=== PATIENT | male | born 1985 | race Caucasian/White ===

== ENCOUNTER 2019-07-01 02:55 | Observation (INO) | payer OTHER, SELFPAY ==
[2015-04-30 04:34] VITALS: BMI 34.2
[2019-07-01] VITALS (12 sets, daily range): BP systolic 111–154; BP diastolic 69–100; PULSE 79–116; RESP 16–18; TEMP 36.3–37; O2SAT 94–100; BMI 35.9; BMI 36.0; BMI 36.1
--- NOTE | 2019-07-01 03:06 | CT_ITS ---
STUDY: CT ABDOMEN AND PELVIS WITHOUT CONTRAST REASON FOR EXAM: Male, 34 years old. RIGHT SIDED AND PAIN WITH NAUSEA. LAST BM YESTERDAY RADIATION DOSAGE (If Supplied By Facility): CTDIvol = ( 13.78 ) mGy, DLP = ( 788.52 ) mGycm TECHNIQUE: Transaxial images were obtained from the dome of the diaphragm to the symphysis pubis without oral contrast, and without intravenous contrast. Sagittal and coronal images were reconstructed. Individualized dose optimization techniques were used for this CT. COMPARISON: 04/30/2015. FINDINGS: The visualized lung bases are unremarkable. The visualized portions of the heart are within normal limits. Normal liver. Normal gallbladder and extrahepatic biliary system. Normal spleen. Normal pancreas. Normal bilateral adrenal glands. Normal right kidney. Normal left kidney. There is a small hiatal hernia. Normal small intestine. Normal colon. The appendix is visualized on axial images 106-112 and it is enlarged, with diameter 1.5 cm. There are appendicoliths in the appendix and there is periappendiceal fat infiltration. There is no demonstrated periappendiceal fluid collection or free intraperitoneal air to suggest appendiceal rupture. Normal abdominal aorta. Normal inferior vena cava. Normal retroperitoneum. There are a few mildly hyperplastic mesenteric lymph nodes in the right lower quadrant of the abdomen, ranging up to 8 mm in short axis diameter. Normal urinary bladder. Normal abdominal wall. There is multilevel spondylosis in the visualized lower thoracic spine. CT/Abdomen/Pelvis without Cont IMPRESSION: Acute appendicitis. No evidence for appendiceal rupture. Hyperplastic mesenteric lymph nodes in the right lower quadrant of the abdomen, possibly representing reactive changes due to appendiceal inflammation. Small hiatal hernia. N.B. : The above information has been verbally conveyed by Mesfin Granados MD to Morgan Cortez MD, on 07/01/2019 03:54:04 (ET). Electronically Signed: Mesfin Granados MD at 3:56 EST , Service support ,
--- NOTE | 2019-07-01 03:06 | ED.VIS.GEN ---
History of Present Illness Chief Complaint: Abd Pain Informant: Patient Narrative: Patient stated throughout the whole day yesterday he has had right lower abdominal pain. Is gotten worse. Hurts to push on it. He had a few episodes of emesis tonight. No diarrhea. Is never had this before. No home treatment. Current severity is moderate. Worsened by movement. Relieved by laying still. Previous surgeries include tonsils only. No previous abdominal surgeries. Denies any urinary symptoms. Denies any scrotal symptoms. Past Medical History - Allergies and Home Meds Allergies/Adverse Reactions: Allergies Penicillins Allergy (Verified 07/01/19 02:56) Itching latex Adverse Reaction (Verified 07/01/19 02:56) Itching Primary Care Physician: Care Physician,No Primary [Primary Care Provider] - Prior records reviewed: Yes Past Medical History: None Surgical History: tonsillectomy Lives: With Family Smoking Status: Current every day smoker Alcohol: None Drugs: None - Family History Maternal Family History: Reports: No pertinent history Paternal Family History: Reports: No pertinent history Review of Systems General: Denies: Chills, Fever, Sweats Eyes: Denies: Visual changes - bilaterally, Diplopia ENT: Denies: Rhinorrhea, Sore throat Cardiovascular: Denies: Chest pain, Palpitations Respiratory: Denies: Dyspnea, Cough, Dyspnea on exertion Gastrointestinal: Reports: Abdominal pain, Nausea, Vomiting. Denies: Diarrhea, Melena, Hematochezia Genitourinary: Denies: Dysuria, Hematuria, Frequency Musculoskeletal: Denies: Back pain, Extremity Pain Skin: Denies: Rash, Wounds Neurological: Denies: Headache, Weakness, Numbness Physical Exam Vital Signs/Narrative: Vital Signs Temp Pulse Resp BP Pulse Ox 07/01/19 02:57 98.5 F 103 H 16 154/100 H 100 General: Well nourished, Well developed, No Acute Distress Head: Normocephalic, Atraumatic Eyes: Perrl, EOMI ENT: Moist mucous membranes, No rhinorrhea Neck: Supple, Nontender Cardiovascular: Regular rate, Regular rhythm, No murmurs Respiratory: No distress, CTA bilaterally, Chest nontender Abdomen: Soft, Nondistended, Normal bowel sounds, No masses, Tender - Tender in the right lower quadrant over the appendix.. Negative for: Nontender, Guarding, Rebound tenderness, Mass, Pulsatile mass, Hunt's sign Back: Nontender, Normal Inspection Extremities: Nontender, No edema Skin: Normal color, No rash Neurological: Alert, Oriented x3, Cranial nerves II-XII grossly intact, Normal Strength, Normal Sensation Psychological: Normal affect, Normal Mood Diagnostic/Tx/Re-eval - Medical Decision Making Given IV fluids Toradol and Zofran. Lab work and CT abdomen pelvis obtained. Lab work shows a white count greater than 17,000 with left shift. Hemoglobin also 17. Liver function tests lipase and electrolytes show no significant abnormalities.. CT scan shows a nonruptured appendicitis. Will be started on antibiotics clindamycin plus gentamicin due to a penicillin allergy. Given a dose of morphine later in his stay for pain. Discussed with surgery. Patient will be admitted ED Disposition - Plan for ED Patient: Disposition: Acute Care Hospital [facility] Diagnosis: Acute appendicitis Referrals: Care Physician,No Primary [Primary Care Provider] -
[2019-07-01] MEDS: Ketorolac 30 MG/ML Syringe IV ×2 (03:14→14:18)
[2019-07-01 03:15] LABS: Absolute Lymphocyte Count 2.32 X10^3/uL (0.83-4.51); Basophil# 0.07 X10^3/uL; Basophil% 0.4 % (0-1); Eosinophils% 1.2 % (0-5); Hematocrit 50.8 % (40-54); Hemoglobin 17.2 g/dL (13.0-16.5); Lymphocyte # 2.32 X10^3/ul (4.0); Lymphocyte % 13.6 % (19-41); Mean Corp Hgb Conc 33.9 g/dL (32-36); Mean Corpuscular Hgb 30.7 pg (27.0-32.0); Mean Corpuscular Volume 90.7 fL (80-94); Mean Platelet Vol. 10.2 fl (6.2-12.0); Monocyte# 1.41 X10^3/uL; Monocyte% 8.3 % (0-10); NRBC Flagged by Analyzer 0 % (0-5); Neutrophil # 12.99 X10^3/uL (2.7-7.7); Neutrophil % 76.2 % (47-70); Platelet Count 266 K/mm3 (150-450); RBC Distribution Width CV 13.3 % (11.6-14.6); RBC Distribution Width SD 44.7 fl (35.1-43.9)
[2019-07-01] MEDS: Ondansetron 4 MG/2 ML Vial IV (03:15)
[2019-07-01] MEDS: 0.9% Normal Saline 1,000 ML 1000 ML IV (03:15)
[2019-07-01 03:31] LABS: AST(SGOT) 14 U/L (15-37); Alanine Aminotransfer ALT/SGPT 27 U/L (16-61); Albumin, Serum 4.2 g/dL (3.2-5.0); Alkaline Phosphatase 80 U/L (45-117); Anion Gap 5 (5-15); BUN 15 mg/dL (7-18); BUN/Creat Ratio 14.6 RATIO (10-20); Bilirubin, Direct 0.08 mg/dL (0.00-0.30); Calcium,Total 9.1 mg/dL (8.5-10.1); Chloride 105 mmol/L (98-107); Creatinine, Serum 1.03 mg/dL (0.70-1.30); EST Glomerular Filtration Rate 88 mL/min (>60); Est Glom Filt Rate - Afr Amer 107 mL/min (>60); Estimated Creatinine Clearance 111.96 ml/min; Globulin 3.7 g/dL (2.2-4.2); Glucose 123 mg/dL (74-106); Lipase 83 U/L (73-393); Potassium 4.2 mmol/L (3.5-5.1); Protein, Total 7.9 g/dL (6.4-8.2); Sodium Level 138 mmol/L (136-145)
[2019-07-01] MEDS: Morphine 4 MG/ML Syringe IV (04:10)
--- NOTE | 2019-07-01 04:53 | DCINST_ITS ---
Discharge Diet: Light diet - advance as tolerated - if you have questions about your diet instructions, please talk to you doctor. Discharge Activity: May Not Drive - for 3-5 days or while taking narcotic pain medicine. May shower in (days): 1 Lifting Restrictions: 10 pounds Call your doctor if your incision/area has: Continuous Slow Oozing, Sudden Increased Bleeding, Increased Pain/ Swelling, Increased Redness, Foul Smelling Discharge Call your doctor if you observe: Fever of 101 or Higher Suture Line Care: Avoid Pulling/Pushing, Avoid Pinching/Bending Additional Dressing/Incision Instructions:: Change or remove dressing in 4 days. Leave steri-strips in place for 1 week. Allergies/Adverse Reactions: Allergies Penicillins Allergy (Verified 07/01/19 02:56) Itching latex Adverse Reaction (Verified 07/01/19 02:56) Itching Medications to take at Discharge No Known/Unobtainable [No Known Home Medications] 04/30/15 Primary Care Physician: Care Physician,No Primary [Primary Care Provider] - Test Results: Test results from this visit will be discussed in further detail at your follow- up appointment, if applicable. Please Follow Up With: Raul Shaw MD - [phone] When: Call to make an appointment to be seen in about 10 days.
--- NOTE | 2019-07-01 04:54 | PCM.HP.STD ---
Problem List (1) Acute appendicitis Status: Acute Qualifiers: Acute appendicitis type: with localized peritonitis Appendicitis gangrene presence: unspecified whether gangrene present Appendicitis perforation presence: unspecified whether perforation present Appendicitis abscess presence: unspecified whether abscess present Qualified Code(s): K35.30 - Acute appendicitis with localized peritonitis, without perforation or gangrene History of Present Illness Date of Admission: 07/01/19 The patient is a 34 year old M who presents to the emergency room with fever chilling and a 24-hour history of severe abdominal pain.. The patient was evaluated noted had an elevated white count of 17,000. Hemoglobin is elevated to 17.2 with hematocrit of 50.8 and platelet count of 266,000. 76% neutrophils. Is 15 and creatinine 1.03. Liver function tests normal. CT scan was obtained showing acute appendicitis it hyperplastic mesenteric lymph nodes small hiatal hernia. On my review of the images unfortunate as he has a significant amount of paraseptal appendiceal stranding and inflammation appears to abut up against the cecum and involving the cecal wall. Past Medical History Past Medical History (Chronic Problems): Chronic Problems GERD (gastroesophageal reflux disease) (Chronic) Tobacco abuse (Chronic) Obesity (BMI 30.0-34.9) (Chronic) Allergies Penicillins Allergy (Verified 07/01/19 02:56) Itching latex Adverse Reaction (Verified 07/01/19 02:56) Itching Home Medications: Ambulatory Orders Medication Instructions Recorded No Known/Unobtainable [No Known 04/30/15 Home Medications] Surgical History: tonsillectomy Psychiatric History: No pertinent psych hx Lives: With Family Smoking Status: Current every day smoker Tobacco Use: Cigarettes Alcohol: None Drugs: None - *Family History Maternal History Items: No pertinent history Paternal History Items: No pertinent history Review of Systems Constitutional: Reports: Chills, Fever Cardiovascular: Denies: Chest Pain Respiratory: Reports: Cough Gastrointestinal: Reports: Abdominal Pain. Denies: Melena Endocrine: Denies: Change in Body Habitus VTE Information - Inpt Only VTE Present on Admission: No Patient Problems: Active and Suspected Problems Acute appendicitis (Acute) - Physical Exam Vitals/I&O's: Vital Signs Temp Pulse Resp BP Pulse Ox 98.5 F 84 16 136/87 H 98 07/01/19 04:11 07/01/19 04:11 07/01/19 04:11 07/01/19 04:11 07/01/19 04:11 Oxygen Delivery Method Room Air Weight: 265 lb 3.457 oz Body Mass Index (BMI) 35.9 Intake and Output for Last 24 Hours 06/29/19 06/30/19 07/01/19 23:59 23:59 23:59 Intake Total 1000 / 1000 Balance 1000 / 1000 General: Alert, Oriented x3, Cooperative, No apparent distress Lungs: Wheezes - Wheezing bilaterally Cardiovascular: Regular rate, Regular Rhythm Abdomen: Soft, Hypoactive Bowel Sounds, Obese, Tender - Markedly tender to palpation right mid abdomen lower quadrant with rebound and guarding Extremities: No Calf Tenderness Psych/Mental Status: Normal Affect Laboratory Results 07/01/19 03:00: WBC 17.0 H, RBC 5.60, Hgb 17.2 H, Hct 50.8, MCV 90.7, MCH 30.7, MCHC 33.9, RDW Std Deviation 44.7 H, RDW Coeff of Gibran 13.3, Plt Count 266, MPV 10.2, Immature Gran % (Auto) 0.300, Neut % (Auto) 76.2 H, Lymph % (Auto) 13.6 L, [place] % (Auto) 8.3, Eos % (Auto) 1.2, Baso % (Auto) 0.4, Absolute Neuts (auto) 13.0 H, Absolute Lymphs (auto) 2.32, Nucleated RBC % 0 07/01/19 03:00: Sodium 138, Potassium 4.2, Chloride 105, Carbon Dioxide 28.0, Anion Gap 5, BUN 15, Creatinine 1.03, Estim Creat Clear Calc 111.96, Est GFR (MDRD) Af Amer 107, Est GFR (MDRD) Non-Af 88, BUN/Creatinine Ratio 14.6, Glucose 123 H, Calcium 9.1, Total Bilirubin 0.50, Direct Bilirubin 0.08, AST 14 L, ALT 27, Alkaline Phosphatase 80, Total Protein 7.9, Albumin 4.2, Globulin 3.7, Lipase 83 Current Medications Clindamycin Phosphate 900 mg/ (Dextrose) 106 mls @ 75 mls/hr IV X1 ONE Stop: 07/01/19 05:27 Gentamicin Sulfate 400 mg/ (Dextrose) 60 mls @ 100 mls/hr IVPB X1 ONE Stop: 07/01/19 05:00 Last Admin: 07/01/19 04:39 Dose: 100 mls/hr Documented by: Assessment/Plan All Active Problems Acute appendicitis (Acute) 34-year-old gentleman. Findings are consistent with severe acute appendicitis possible perforation possible cecal wall involvement. Additional findings are notable for 2 packs/day of cigarette smoking with active wheezing. As a likely consequence he has significant polycythemia placing him at increased risk for DVT and pulmonary embolus. I recommended the patient a laparoscopic appendectomy with possible conversion to an open approach. He is allergic to penicillin so we will treat with clindamycin and gentamicin. He has had an opportunity to ask and have questions answered. I will anticipate utilizing sequential venous compression devices and initiating postoperative subcutaneous Lovenox as soon as feasible pending the magnitude of the procedure. I have encouraged the patient to cease his tobacco use. Raul Shaw M.D., F.A.C.S.
[2019-07-01] MEDS: Ipratropium/Albuterol Sulfate 3 ML AMPUL.NEB INHALATION (04:57)
--- NOTE | 2019-07-01 05:00 | APP_PTH ---
PATIENT: BEATRIZ LOGAN LOC: MS3 U#:[id number] AGE/SX: 34/M ROOM: MS317 RE07/01/[address]: Dr. Raul Shaw MD : 1985 BED: 1 DIS: 07/02/2019 SPEC #: [id number] RECD: 07/01/19 13:23 STATUS: TWYLA REColby #: [id number] QUITA: 07/01/19 05:[address]: Raul Shaw DEPT: SURGICAL PATHOLOGY RECD BY: Yaniv Rush ENTERED: 07/01/19 13:59 SP TYPE: APPENDIX OTHR DR: No Primary Care Phys Tissues: Appendix, NOS Procedures: Surgery Specimen Level III HEADER OPERATION: Laparoscopic appendectomy PRE-OP DIAGNOSIS: Acute appendicitis TISSUE SUBMITTED: Appendix MICROSCOPIC DIAGNOSIS Appendix, appendectomy: Acute necrotizing appendicitis. Acute serositis. AM:stephane 07/02/19 MICROSCOPIC DESCRIPTION Slides are reviewed. GROSS DESCRIPTION Received is one container labeled with the patient's name and designated appendix. The specimen consists of a vermiform appendix measuring 5 cm in length and 1 cm in diameter. No gross perforations are identified. The attached fibrofatty tissue measures 5 x 5 x 1 cm. Serial sections of the fibrofatty tissue do not reveal mass lesions. Serial sections of the appendix reveal a patent lumen. Operations Chief sections of the appendix are submitted in one cassette. / AM:stephane 07/01/19 TC:2 CPT: 62370
[2019-07-01] MEDS: Bupivacaine Mpf 0.5% 30 ML VIAL (06:36)
--- NOTE | 2019-07-01 06:43 | PCM.OPRPT ---
Problem List (1) Acute appendicitis Status: Acute Qualifiers: Acute appendicitis type: with localized peritonitis Appendicitis gangrene presence: without gangrene Appendicitis perforation presence: without perforation Appendicitis abscess presence: unspecified whether abscess present Qualified Code(s): K35.30 - Acute appendicitis with localized peritonitis, without perforation or gangrene Report of Operation Date of Procedure: 07/01/19 Pre-Operative Diagnosis: Acute appendicitis Post-Operative Diagnosis: Acute appendicitis with localized peritonitis Surgery/Procedure Performed:: Laparoscopic appendectomy Description of Surgical Findings:: Timeout informed consent was obtained. 34-year-old gent was taken the operating placement table underwent general endotracheal intubation esthesia. Clindamycin and gentamicin were given intravenously preoperatively therapeutically. The abdomen sterilely prepped draped. 0.5% Marcaine was used as local anesthetic. Throughout the procedure 30 cc was used. Skin sites were pre-anesthetized. A vertical infraumbilical incision was created. The patient was noted to be obese. Sharp dissection carried down through the subcutaneous tissue holding sutures of 0 Vicryl placed varies needle inserted saline drop test performed the abdomen was insufflated with CO2 to a pressure of 10 mmHg pressure. 10 mm trocar inserted. 10 lap scope inserted. 5 mm trochars are placed suprapubically in the right midabdomen. Inspection revealed acute severe appendicitis with periappendiceal inflammation and stranding and clearance of the appendix to the pericecal area. A window was made in the mesoappendix flush with the cecum. A standard height 45 mm stapler was used to secure that. Further hemostasis obtained with a hemo-lock clip. The mesoappendix was taken with 2 transections of the 45 mm stapler. There was very thickened. The appendiceal mesentery. Hemostasis was intact. The appendix was placed in a retrieval bag. The right pericecal area was irrigated and aspirated free. The appendix was removed at the umbilicus slight fascial enlargement was required. The abdomen was allowed to deflate of the CO2. The fascia at the umbilicus proximal interrupted 0 Vicryl [id number] suture. Skin edges proximal interrupted 4 Monocryl subdermal stitches. Steri-Strips Telfa and OpSite dressings applied. Sponge and instrument and needle counts were reported to the surgeon to be correct. Specimen appendix. Drains none. Blood loss minimal. Raul Shaw M.D., F.A.C.SYoandy Type of Anesthesia:: General Anesthesiologist: Erwin Beasley
[2019-07-01] MEDS: oxyCODONE 5 MG Tablet PO ×2 (12:28→20:01)
--- NOTE | 2019-07-01 13:10 | PN.SURG_ITS ---
Patient Problems: Active and Suspected Problems Acute appendicitis (Acute) Subjective: Very sore now in abdomen, sore shoulders - Physical Exam Vitals/I&O's: Vital Signs Temp Pulse Resp BP Pulse Ox 98.3 F 89 18 112/72 96 07/01/19 11:30 07/01/19 11:30 07/01/19 11:30 07/01/19 11:30 07/01/19 11:30 Oxygen Delivery Method Room Air Weight: 266 lb 5.094 oz Body Mass Index (BMI) 36.1 Intake and Output for Last 24 Hours 06/29/19 06/30/19 07/01/19 23:59 23:59 23:59 Intake Total 1566 / 1566 Balance 1566 / 1566 Abdomen: Soft, Hypoactive Bowel Sounds Laboratory Results 07/01/19 03:00: WBC 17.0 H, RBC 5.60, Hgb 17.2 H, Hct 50.8, MCV 90.7, MCH 30.7, MCHC 33.9, RDW Std Deviation 44.7 H, RDW Coeff of Gibran 13.3, Plt Count 266, MPV 10.2, Immature Gran % (Auto) 0.300, Neut % (Auto) 76.2 H, Lymph % (Auto) 13.6 L, [place] % (Auto) 8.3, Eos % (Auto) 1.2, Baso % (Auto) 0.4, Absolute Neuts (auto) 13.0 H, Absolute Lymphs (auto) 2.32, Nucleated RBC % 0 07/01/19 03:00: Sodium 138, Potassium 4.2, Chloride 105, Carbon Dioxide 28.0, Anion Gap 5, BUN 15, Creatinine 1.03, Estim Creat Clear Calc 111.96, Est GFR (MDRD) Af Amer 107, Est GFR (MDRD) Non-Af 88, BUN/Creatinine Ratio 14.6, Glucose 123 H, Calcium 9.1, Total Bilirubin 0.50, Direct Bilirubin 0.08, AST 14 L, ALT 27, Alkaline Phosphatase 80, Total Protein 7.9, Albumin 4.2, Globulin 3.7, Lipase 83 Current Medications Acetaminophen (Tylenol) 650 mg PO Q6H PRN PRN PRN Reason: Pain Score 1-10/10 Albuterol Sulfate (Ventolin Aerosols) 2.5 mg INHALATION Q4H PRN PRN PRN Reason: wheeeze Enoxaparin Sodium (Lovenox) 40 mg SC DAILY@0600 [facility] Clindamycin Phosphate 900 mg/ (Dextrose) 106 mls @ 150 mls/hr IV Q8 [facility] Stop: 07/01/19 14:43 Lactated Ringer's () 1,000 mls @ 50 mls/hr IV .Q20H [facility] Sodium Chloride () 250 mls @ 15 mls/hr IV .[id number] PRN PRN Reason: Saline Flush Sodium Chloride () 250 mls @ 15 mls/hr IV .[id number] PRN PRN Reason: Additional IVPB Infusion Ketorolac Tromethamine (Toradol (Bkc)) 15 mg IV Q6H PRN PRN PRN Reason: Pain Score 1-10/10 Morphine Sulfate () 2 - 4 mg IV Q1H PRN PRN PRN Reason: Pain Score 1-10/10 Nicotine (Nicoderm Cq (Pbkc)) 21 mg TRANSDERM. DAILY [facility] Last Admin: 07/01/19 09:31 Dose: Not Given Documented by: Ondansetron HCl (Zofran) 4 mg IV Q8H PRN PRN PRN Reason: NAUSEA Oxycodone HCl (Oxyir) 5 - 10 mg PO Q4H PRN PRN PRN Reason: Pain Score 6-10/10 Last Admin: 07/01/19 12:28 Dose: 10 mg Documented by: Pantoprazole Sodium (Protonix) 40 mg PO DAILY [facility] Sodium Chloride () 10 - 40 ml IV UD PRN PRN Reason: SALINE FLUSH Medical Necessity - Tobacco Use Smoking Status: Current every day smoker Tobacco Use: Cigarettes Assessment/Plan All Active Problems Acute appendicitis (Acute) Continue care
[2019-07-01] MEDS: Pantoprazole Sodium 40 MG Tablet PO (14:19)
[2019-07-01] MEDS: Lactated Ringers 1,000 ML 50 ML IV (16:44)
[2019-07-02] MEDS: oxyCODONE 5 MG Tablet PO (00:03)
[2019-07-02 00:04] VITALS: BP 125/76; PULSE 72; RESP 16; TEMP 36.6; O2SAT 98
[2019-07-02] MEDS: Ketorolac 15 MG/ML Vial IV (00:12)
[2019-07-02 04:08] VITALS: BP 120/78; PULSE 80; RESP 16; TEMP 36.8; O2SAT 98
--- NOTE | 2019-07-02 05:49 | PCM.PN.SRG ---
Patient Problems: Active and Suspected Problems Acute appendicitis (Acute) Subjective: Pt c/o soreness RLQ Positive flatus - Physical Exam Vitals/I&O's: Vital Signs Temp Pulse Resp BP Pulse Ox 98.2 F 80 16 120/78 98 07/02/19 04:08 07/02/19 04:08 07/02/19 04:08 07/02/19 04:08 07/02/19 04:08 Oxygen Delivery Method Room Air Weight: 266 lb 5.094 oz Body Mass Index (BMI) 36.1 Intake and Output for Last 24 Hours 06/30/19 07/01/19 07/02/19 23:59 23:59 23:59 Intake Total 1672 / 1672 Balance 1672 / 1672 Abdomen: Soft, Hypoactive Bowel Sounds, Obese, Tender Current Medications Acetaminophen (Tylenol) 650 mg PO Q6H PRN PRN PRN Reason: Pain Score 1-10/10 Albuterol Sulfate (Ventolin Aerosols) 2.5 mg INHALATION Q4H PRN PRN PRN Reason: wheeeze Enoxaparin Sodium (Lovenox) 40 mg SC DAILY@0600 REPLACED BY [facility] Lactated Ringer's () 1,000 mls @ 50 mls/hr IV .Q20H REPLACED BY [facility] Last Admin: 07/01/19 16:44 Dose: 50 mls/hr Documented by: Sodium Chloride () 250 mls @ 15 mls/hr IV .[id number] PRN PRN Reason: Saline Flush Sodium Chloride () 250 mls @ 15 mls/hr IV .[id number] PRN PRN Reason: Additional IVPB Infusion Ibuprofen (Motrin) 600 mg PO Q8H PRN PRN PRN Reason: Pain Score 1-10/10 Ketorolac Tromethamine (Toradol (Bkc)) 15 mg IV Q6H PRN PRN PRN Reason: Pain Score 1-10/10 Last Admin: 07/02/19 00:12 Dose: 15 mg Documented by: Morphine Sulfate () 2 - 4 mg IV Q1H PRN PRN PRN Reason: Pain Score 1-10/10 Nicotine (Nicoderm Cq (Pbkc)) 21 mg TRANSDERM. DAILY REPLACED BY [facility] Last Admin: 07/01/19 09:31 Dose: Not Given Documented by: Ondansetron HCl (Zofran) 4 mg IV Q8H PRN PRN PRN Reason: NAUSEA Oxycodone HCl (Oxyir) 5 - 10 mg PO Q4H PRN PRN PRN Reason: Pain Score 6-10/10 Last Admin: 07/02/19 00:03 Dose: 5 mg Documented by: Pantoprazole Sodium (Protonix) 40 mg PO DAILY [facility] Last Admin: 07/01/19 14:19 Dose: 40 mg Documented by: Sodium Chloride () 10 - 40 ml IV UD PRN PRN Reason: SALINE FLUSH Medical Necessity - Tobacco Use Smoking Status: Current every day smoker Tobacco Use: Cigarettes Assessment/Plan All Active Problems Acute appendicitis (Acute) Plan discharge on OTC pain meds as discussed with pt
[2019-07-02 06:28] LABS: Absolute Lymphocyte Count 2.53 X10^3/uL (0.83-4.51); Absolute Neutrophil Count 5.3 X10^3/uL (2.0-7.7); Basophil# 0.03 X10^3/uL; Basophil% 0.3 % (0-1); Eosinophil# 0.18 X10^3/uL; Hematocrit 41.9 % (40-54); Hemoglobin 13.8 g/dL (13.0-16.5); Lymphocyte # 2.53 X10^3/ul (4.0); Lymphocyte % 27.9 % (19-41); Mean Corp Hgb Conc 32.9 g/dL (32-36); Mean Corpuscular Hgb 30.4 pg (27.0-32.0); Mean Corpuscular Volume 92.3 fL (80-94); Mean Platelet Vol. 10.3 fl (6.2-12.0); Monocyte# 0.99 X10^3/uL; Monocyte% 10.9 % (0-10); NRBC Flagged by Analyzer 0 % (0-5); Neutrophil # 5.33 X10^3/uL (2.7-7.7); Neutrophil % 58.7 % (47-70); Platelet Count 192 K/mm3 (150-450); RBC Distribution Width CV 13.5 % (11.6-14.6); RBC Distribution Width SD 46.1 fl (35.1-43.9); Red Blood Count 4.54 M/mm3 (4.6-6.2); White Blood Count 9.1 K/mm3 (4.4-11.0)
[2019-07-02 08:24] VITALS: BP 127/76; PULSE 91; RESP 18; TEMP 36.9; O2SAT 95
[2019-07-02] MEDS: Pantoprazole Sodium 40 MG Tablet PO (08:28)
[2019-07-02 09:30] VITALS: BP 127/76; PULSE 91; RESP 18; TEMP 36.9; O2SAT 95
== END 2019-07-02 09:30 | disposition home or self-care (01) ==
LOC: ED 03:58 → SDC 04:06 → AC 04:06 → MS3 04:33 → SDC 05:46 → MS3 09:12
PROVIDERS: Admitting Provider Surgery; Emergency Provider Emergency Medicine; Visit Provider Surgery
PROC: 0DTJ4ZZ Resection of Appendix, Percutaneous Endoscopic Approach (ICD-10-PCS; CPT 44970; principal; 2019-07-01 05:00)
DX: K35.33 Acute appendicitis with perforation, localized peritonitis, and gangrene, with abscess (principal); F17.210 Nicotine dependence, cigarettes, uncomplicated; K21.9 Gastro-esophageal reflux disease without esophagitis; E66.9 Obesity, unspecified; Z68.36 Body mass index [BMI] 36.0-36.9, adult; Z71.3 Dietary counseling and surveillance
CPT/HCPCS: 00840; 44970; 36415; 74176; 80048; 80076; 83690; 85025; 88304; 94640; 96365; 96367; 96375; 96376; 99218; 99282; 99406; J7030; J7120; A4216; G0378; J2405

== ENCOUNTER 2021-03-05 20:22 | Emergency (ER) | payer OTHER, SELFPAY ==
[2021-03-05 20:23] VITALS: BP 138/102; PULSE 89; RESP 18; TEMP 36; O2SAT 99; BMI 34.0
--- NOTE | 2021-03-05 22:02 | EKG12_ITS ---
Test Reason : CP Blood Pressure : / mmHG Vent. Rate : 081 BPM Atrial Rate : 081 BPM P-R Int : 132 ms QRS Dur : 082 ms QT Int : 354 ms P-R-T Axes : 018 010 006 degrees QTc Int : 411 ms Normal sinus rhythm Normal ECG Confirmed by ANCELMO MORENO, GIORGIO ([id number]), fashion editor LUCIANA ANTHONY ([id number]) on 03/06/2021 9:25:50 AM Referred By: GAV[place] Confirmed By:GIORGIO AG MD
--- NOTE | 2021-03-05 22:02 | RAD_ITS ---
STUDY: X-RAY CHEST REASON FOR EXAM: Male, 35 years old. Chest pain TECHNIQUE: Portable, upright AP chest radiograph COMPARISON: 03/22/2015 FINDINGS: The lungs are clear and expanded. There is no demonstrated pleural abnormality. Normal size heart. Normal mediastinum and lynne. Normal visualized pulmonary arteries. Normal visualized aortic arch and descending thoracic aorta. Normal visualized thoracic spine. Normal visualized ribs, clavicles, and shoulders. There is no demonstrated abnormality of the visualized soft tissue structures of the upper abdomen. RAD/Chest 1 View (Portable) IMPRESSION: No acute abnormal cardiopulmonary finding. Electronically Signed: Harley Unger MD at 22:34 EDT Tel , Service support ,
[2021-03-05 22:12] VITALS: O2SAT 98
--- NOTE | 2021-03-05 22:15 | ED.VIS.CHEST ---
HPI History of Present Illness Chief Complaint: Chest Pain Narrative Narrative: 35-year-old male with history of asthma and GERD presenting with chest pain which is retrosternal. He states it radiates to the left. He does not have shortness of breath, cough, fever. Patient states that started earlier today. It comes and goes and last for 30 seconds at a time. No diaphoresis, nausea, lightheadedness with this pain. Patient has no cardiac history. He has no DVT risk factors or PE risk factors. Patient states that prior to this he had a rash that broke out on his body. He denies any soaps, dyes, linens, etc. that have changed. He states the rash is basically resolving. He does not know of anything that he would be allergic to. He states that he still is a little bit itchy. [facility] FOR[facility]LY [facility], [facility] Medical History Acute appendicitis GERD (gastroesophageal reflux disease) Obesity (BMI 30.0-34.9) Tobacco abuse Home Medications No Known/Unobtainable [No Known Home Medications] 04/30/15 [History Last Taken Unknown] Allergy/AdvReac Type Severity Reaction Status Date / Time Penicillins Allergy Itching Verified 07/13/19 13:06 latex AdvReac Hives Verified 07/13/19 13:06 Surgical History Hx of appendectomy Social History Smoking Status: Current every day smoker tobacco type: cigarettes ROS ROS ED Constitutional Constitutional ED: Denies chills or fever(s) Eyes Eyes: Reports none; Denies blurry vision or change in vision ENT ENT ED: Denies rhinorrhea or sore throat Cardiovascular Cardiovascular: Reports chest pain; Denies palpitations or racing heartbeat Respiratory/Chest Respiratory/Chest: Denies cough, dyspnea or sputum Gastrointestinal Gastrointestinal: Denies abdominal pain, nausea or vomiting Genitourinary Genitourinary ED: Denies dysuria or hematuria Musculoskeletal Musculoskeletal: Denies arthralgias or myalgias Integumentary Reports rash; Denies Abrasions Neurologic Neurologic: Denies headache(s) or paresthesias EXAM Physical Exam Const Vital Signs: 03/05/21 20:23 03/05/21 21:10 03/05/21 22:12 Temperature 96.8 F L Temperature Source Temporal Pulse Rate 89 Respiratory Rate 18 Respiratory Effort Short of Breath Blood Pressure 138/102 H Blood Pressure Mean 114 Pulse Ox 99 98 Oxygen Delivery Method Room Air Room Air 03/05/21 23:29 Temperature Temperature Source Pulse Rate 79 Respiratory Rate Respiratory Effort Blood Pressure Blood Pressure Mean Pulse Ox 96 Oxygen Delivery Method Room Air Positive obese General Appearance ED: NAD; Negative for pallor Nutritional Appearance: obese HEENT Reports normocephalic, head/scalp atraumatic and moist mucous membranes normocephalic and atraumatic Eyes PERRL and EOMs intact bilaterally Neck no lymphadenopathy and supple Chest Wall inspection of chest normal and palpation of chest normal Resp normal respiratory effort and clear to auscultation bilaterally Auscultation: Negative for rales, rhonchi or wheezes Cardio regular rate and regular rhythm GI Auscultation: normoactive bowel sounds Palpation: soft Narrative: Deferred Extremity normal to inspection General Extremety ED: Negative for edema or tenderness General Extremity: Negative for edema Neuro oriented x3 and CN's II-XII intact bilaterally Sensorium / Orientation: alert Motor Exam: strength 5/5 throughout Psych mental status grossly normal Attitude: No agitated Skin no rashes or lesions noted and no wounds General Skin Exam: Negative for jaundice or pallor Heart Score History: Slightly/Non-Suspicious ECG: Normal Age: </= 45 years Risk Factors: No Risk Factors Troponin: </= Normal Limit Score: 0 MDM MDM MDM Narrative Medical decision making narrative: Patient presenting with chest pain. On my interpretation his EKG is sinus rhythm at 81 bpm without sign of ischemic change. Chest x-ray shows no acute process. Will obtain blood work to rule out ACS. Patient is PERC negative. Patient is complaining of rash which is not visible anymore. He states it is itching him and I will give him some Benadryl. High-sensitivity troponins x2 are both 6. At this point I do not believe that is ACS. Patient's rash is still not present. I feel he is safe to be discharged home at this time. He will use Benadryl at home if he has any itching. He is given follow-up. Impression: 1. Chest pain noncardiac 2. Contact dermatitis resolved Lab Data Labs: Laboratory Results - last 24 hr 03/05/21 03/05/21 03/06/21 21:52 21:52 00:19 WBC 11.3 H RBC 5.57 Hgb 17.4 H Hct 50.9 MCV 91.4 MCH 31.2 MCHC 34.2 RDW Std Deviation 48.4 H RDW Coeff of Gibran 14.4 Plt Count 261 MPV 10.8 Immature Gran % (Auto) 0.300 Neut % (Auto) 64.0 Lymph % (Auto) 25.2 [place] % (Auto) 8.9 Eos % (Auto) 1.3 Baso % (Auto) 0.3 Absolute Neuts (auto) 7.2 Absolute Lymphs (auto) 2.84 Nucleated RBC % 0 Sodium 139 Potassium 4.2 Chloride 106 Carbon Dioxide 28.0 Anion Gap 5 BUN 17 Creatinine 1.05 Estim Creat Clear Calc 108.80 Est GFR (MDRD) Af Amer 104 Est GFR (MDRD) Non-Af 86 BUN/Creatinine Ratio 16.2 Glucose 92 Calcium 8.8 Troponin I High Sens 6 6 Radiography Diagnostic Testing: Clinical Impression(s) from Imaging Studies Chest X-Ray 03/05/21 22:02 IMPRESSION: No acute abnormal cardiopulmonary finding. Electronically Signed: Harley Unger MD at 22:34 EDT Tel , Service support , Discharge Plan Triage Chief Complaint: Chest Pain Other Complaint: Rash ED Provider: Robert Davison Dx/Rx/DC Orders Instructions: ED Chest Pain, Noncardiac, ED Contact Dermatitis Prescriptions: No Action No Known Home Medications RF: 0 Primary Care Provider: Care Physician,No Primary Referrals: Danilo Dowell DO [STAFF PHYSICIAN] - As Needed Care Physician,No Primary [Primary Care Provider] - Disposition Disposition: Home, Self Care
[2021-03-05 22:59] LABS: Absolute Lymphocyte Count 2.84 X10^3/uL (0.83-4.51); Absolute Neutrophil Count 7.2 X10^3/uL (2.0-7.7); Basophil# 0.03 X10^3/uL; Basophil% 0.3 % (0-1); Eosinophil# 0.15 X10^3/uL; Eosinophils% 1.3 % (0-5); Hematocrit 50.9 % (40-54); Hemoglobin 17.4 g/dL (13.0-16.5); Lymphocyte # 2.84 X10^3/ul (0.83-4.51); Lymphocyte % 25.2 % (19-41); Mean Corp Hgb Conc 34.2 g/dL (32-36); Mean Corpuscular Hgb 31.2 pg (27.0-32.0); Mean Corpuscular Volume 91.4 fL (80-94); Mean Platelet Vol. 10.8 fl (6.2-12.0); Monocyte% 8.9 % (0-10); NRBC Flagged by Analyzer 0 % (0-5); Neutrophil # 7.23 X10^3/uL (2.7-7.7); Platelet Count 261 K/mm3 (150-450); RBC Distribution Width CV 14.4 % (11.6-14.6); RBC Distribution Width SD 48.4 fl (35.1-43.9); Red Blood Count 5.57 M/mm3 (4.6-6.2); White Blood Count 11.3 K/mm3 (4.4-11.0)
[2021-03-05 23:14] LABS: Anion Gap 5 (5-15); BUN 17 mg/dL (7-18); BUN/Creat Ratio 16.2 RATIO (10-20); Calcium,Total 8.8 mg/dL (8.5-10.1); Chloride 106 mmol/L (98-107); Creatinine, Serum 1.05 mg/dL (0.70-1.30); EST Glomerular Filtration Rate 86 mL/min (>60); Est Glom Filt Rate - Afr Amer 104 mL/min (>60); Glucose 92 mg/dL (74-106); Potassium 4.2 mmol/L (3.5-5.1); Sodium Level 139 mmol/L (136-145); Troponin-I HS 6 pg/mL (3.0-78.0)
[2021-03-05] MEDS: DiphenhydrAMINE 50 MG/ML Syringe 25 MG IV (23:28)
[2021-03-05 23:29] VITALS: PULSE 79; O2SAT 96
[2021-03-06 00:45] LABS: Troponin-I HS 6 pg/mL (3.0-78.0)
== END 2021-03-06 01:11 | disposition home or self-care (01) ==
PROVIDERS: Emergency Provider Student in an Organized Health Care Education/Training Program
DX: R07.89 Other chest pain (principal); R07.2 Precordial pain; L25.9 Unspecified contact dermatitis, unspecified cause; J45.909 Unspecified asthma, uncomplicated; K21.9 Gastro-esophageal reflux disease without esophagitis; E66.9 Obesity, unspecified; F17.210 Nicotine dependence, cigarettes, uncomplicated
CPT/HCPCS: 71045; 80048; 84484; 85025; 93005; 96374; 99284; A4216

== ENCOUNTER 2021-06-27 14:18 | Emergency (ER) | payer OTHER, SELFPAY ==
[2021-06-27 14:19] VITALS: BP 178/102; PULSE 118; RESP 18; TEMP 36.4; O2SAT 97; BMI 34.5
--- NOTE | 2021-06-27 14:55 | EDS_ITS ---
HPI HPI - URI History of Present Illness Chief Complaint: Wound Check Narrative Narrative: 36-year-old male presenting for evaluation of throat pain. Patient had tonsillectomy and tongue reconstruction yesterday at [facility]. He states he was on a morphine pump and then was given fentanyl patches and was discharged home with pain medication but overnight he notes that his throat is swollen and he is having trouble taking his pain medication. He has not had any bleeding that he knows of. He does not have vomiting. He does report that he has not been able to drink fluids because his throat hurts. ROS ROS ED Constitutional Constitutional ED: Denies chills or fever(s) Eyes Eyes: Denies blurry vision or change in vision ENT ENT ED: Reports sore throat and other Details: Difficulty swallowing Cardiovascular Cardiovascular: Denies chest pain or palpitations Respiratory/Chest Respiratory/Chest: Denies cough or dyspnea Gastrointestinal Gastrointestinal: Denies abdominal pain or nausea Genitourinary Genitourinary ED: Denies dysuria Musculoskeletal Musculoskeletal: Denies arthralgias or myalgias Integumentary Denies abscess or rash Neurologic Neurologic: Denies headache(s) or weakness Psychiatric Psychiatric: Denies anxiety, depression or suicidal thoughts [facility], [facility] Medical History Acute appendicitis GERD (gastroesophageal reflux disease) Obesity (BMI 30.0-34.9) Tobacco abuse Home Medications No Known/Unobtainable [No Known Home Medications] 04/30/15 [History Last Taken Unknown] Allergy/AdvReac Type Severity Reaction Status Date / Time Penicillins Allergy Itching Verified 06/27/21 14:23 latex AdvReac Hives Verified 06/27/21 14:23 Surgical History Hx of appendectomy Social History Smoking Status: Current every day smoker tobacco type: cigarettes EXAM Physical Exam Const Vital Signs: 06/27/21 14:19 Temperature 97.5 F L Temperature Source Temporal Pulse Rate 118 H Respiratory Rate 18 Blood Pressure 178/102 H Blood Pressure Mean 127 Pulse Ox 97 Oxygen Delivery Method Room Air Positive well nourished General Appearance ED: NAD HEENT HEENT Narrative: Trismus. I am unable visualize the posterior oropharynx. Patient's voice is raspy but he is able to speak. Tongue is mildly swollen. There is a MAGALY drain in the left side of the submandibular region. No crepitance is palpated. normocephalic and atraumatic Eyes PERRL and EOMs intact bilaterally Resp normal respiratory effort and clear to auscultation bilaterally Cardio Rate: regular rate Rhythm: regular rhythm Neuro oriented x3, CN's II-XII intact bilaterally and no sensory deficits noted Sensorium / Orientation: alert Motor Exam: strength 5/5 throughout Psych mental status grossly normal Skin Lesions: no lesions Rashes: no rashes MDM MDM MDM Narrative Medical decision making narrative: Patient is medicated with 0.5 of Dilaudid, Zofran 4 mg, 10 mg of dexamethasone and given a liter of IV fluids. On reevaluation the patient is now talking and his pain is improved. His CMP is normal and he is not dehydrated. I discussed the case with Dr. Hamilton his his ENT physician at [facility] and he recommended adding Toradol which was given. Patient reevaluated and still improving. At this point he stated he may want to be transferred to [facility] because of concern that his pain may return. His surgeon did tell me that he had not been taking his pain medication as indicated and this is why he is having so much pain. Is also reported that [facility] is full at this time. I spoke with the surgeon again who did confirm this. He has follow-up with him tomorrow. His surgeon did order him some steroids and more pain medications for home. Patient states that he just wants to sit here for another half an hour and then he will go home and follow-up tomorrow. Impression: 1. Postop wound check?pain Lab Data Attestation: I reviewed the patient's lab results. Labs: Laboratory Results - last 24 hr 06/27/21 15:10 Sodium 141 Potassium 3.8 Chloride 108 H Carbon Dioxide 27.0 Anion Gap 6 BUN 13 Creatinine 1.09 Estim Creat Clear Calc 97.67 Est GFR (MDRD) Af Amer 99 Est GFR (MDRD) Non-Af 82 BUN/Creatinine Ratio 11.9 Glucose 115 H Calcium 8.9 Total Bilirubin 0.90 AST 16 ALT 17 Alkaline Phosphatase 72 Total Protein 7.7 Albumin 4.0 Globulin 3.7 Albumin/Globulin Ratio 1.1 Discharge Plan Triage Chief Complaint: Wound Check Other Complaint: Sore Throat ED Provider: Robert Davison Dx/Rx/DC Orders Instructions: ED Post Op Wound Check, Pain Prescriptions: No Action No Known Home Medications RF: 0 Primary Care Provider: Care Physician,No Primary Referrals: Care Physician,No Primary [Primary Care Provider] - Disposition Disposition: Home, Self Care
[2021-06-27] MEDS: dexAMETHasone 10 MG/ML Vial IV (15:14)
[2021-06-27] MEDS: HYDROmorphone 1 MG/ML Syringe IV (15:14)
[2021-06-27] MEDS: Ondansetron 4 MG/2 ML Vial IV (15:14)
[2021-06-27] MEDS: 0.9% Normal Saline 1,000 ML 1000 ML IV (15:14)
[2021-06-27] MEDS: Ketorolac 15 MG/ML Vial IV (15:22)
[2021-06-27 15:32] LABS: ALB/GLOB Ratio 1.1 RATIO (0.9-2.4); AST(SGOT) 16 U/L (15-37); Alanine Aminotransfer ALT/SGPT 17 U/L (16-61); Alkaline Phosphatase 72 U/L (45-117); Anion Gap 6 (5-15); BUN 13 mg/dL (7-18); BUN/Creat Ratio 11.9 RATIO (10-20); Calcium,Total 8.9 mg/dL (8.5-10.1); Chloride 108 mmol/L (98-107); Creatinine, Serum 1.09 mg/dL (0.70-1.30); EST Glomerular Filtration Rate 82 mL/min (>60); Est Glom Filt Rate - Afr Amer 99 mL/min (>60); Estimated Creatinine Clearance 97.67 ml/min; Globulin 3.7 g/dL (2.2-4.2); Glucose 115 mg/dL (74-106); Potassium 3.8 mmol/L (3.5-5.1); Protein, Total 7.7 g/dL (6.4-8.2); Sodium Level 141 mmol/L (136-145)
[2021-06-27 17:29] VITALS: BP 130/78; PULSE 84; RESP 18; O2SAT 96
== END 2021-06-27 17:30 | disposition home or self-care (01) ==
PROVIDERS: Emergency Provider Student in an Organized Health Care Education/Training Program; Visit Provider Student in an Organized Health Care Education/Training Program
DX: J02.9 Acute pharyngitis, unspecified (principal); R22.1 Localized swelling, mass and lump, neck; Z98.890 Other specified postprocedural states; K21.9 Gastro-esophageal reflux disease without esophagitis; E66.9 Obesity, unspecified; F17.210 Nicotine dependence, cigarettes, uncomplicated
CPT/HCPCS: 80048; 80053; 96361; 96374; 96375; 99283; J7030; A4216; J2405

== ENCOUNTER 2021-07-01 17:51 | Emergency (ER) | payer OTHER, SELFPAY ==
[2021-07-01 17:53] VITALS: BP 192/80; PULSE 111; RESP 18; TEMP 35.4; O2SAT 97; BMI 30.7
--- NOTE | 2021-07-01 18:11 | CT_ITS ---
INDICATION: ODYNOPHAGIA, SWELLING EXAMINATION: CT Soft Tissue Neck W/ Contrast Injection TECHNIQUE: Helically acquired images were obtained of the neck following IV contrast. A radiation dose optimization technique was used for this scan. IV Contrast dosage and agent: 75 cc [id number] COMPARISON: None. FINDINGS: NASOPHARYNX: Unremarkable. SUPRAHYOID NECK: Postsurgical changes in the submental region status post tongue reconstruction. Unremarkable oropharynx, oral cavity, parapharyngeal space, and retropharyngeal space. INFRAHYOID NECK: Unremarkable larynx, hypopharynx, and supraglottis. THYROID: No focal lesions. SALIVARY GLANDS: Unremarkable. LYMPH NODES: No cervical or supraclavicular lymphadenopathy. VASCULAR STRUCTURES: Unremarkable. VISUALIZED PORTIONS OF THE ORBITS, PARANASAL SINUSES, MASTOID AIR CELLS AND SKULL BASE: Unremarkable. BONES: Unremarkable. THORACIC INLET: Clear lung apices. CT/Soft Tissue Neck WITH Contrast IMPRESSION: No acute abnormalities. Postsurgical changes status post tongue reconstruction and tonsillectomy. Electronically Signed: Ned Hagan MD at 19:32 EST ,
--- NOTE | 2021-07-01 18:12 | EX.ED.DYSGE1 ---
HPI History of Present Illness Chief Complaint: Dental Narrative Narrative: Patient presents with his mother because of difficulty swallowing, and pain in his throat with swelling after surgery. He states he had surgery performed on his throat/tonsillectomy/tongue reconstruction at [facility] He was seen in the emergency department a few days ago because of pain and swelling dehydration after he was unable to swallow. He was put on steroids. He states he followed up with his surgeon and was told he had thrush. His pain medication of hydrocodone/acetaminophen liquid was burning his throat so he spits it out. He states he is having pain that feels like sharp razor blades when he swallows, and he is unable to eat or drink anything. He feels dehydrated enough that he thought he should come into the emergency department but did not want to go to the hospital where he had his surgery because of proximity. [facility] Medical History (Updated 07/01/21 @ 19:41 by Miguel Angel Montoya MD) Acute appendicitis GERD (gastroesophageal reflux disease) Obesity (BMI 30.0-34.9) Tobacco abuse Home Medications No Known/Unobtainable [No Known Home Medications] 04/30/15 [History Last Taken Unknown] Allergy/AdvReac Type Severity Reaction Status Date / Time Penicillins Allergy Itching Verified 07/01/21 17:53 latex AdvReac Hives Verified 07/01/21 17:53 Surgical History Hx of appendectomy Social History Smoking Status: Current every day smoker tobacco type: cigarettes ROS ROS ED ROS Narrative Constitutional: No fever, no chills. HEENT: Positive sore throat. Odynophagia. Swelling of chin. Currently being treated for thrush. No neck pain. No loss of vision. No rhinorrhea. Cardiovascular: No chest pain. No palpitations. No pedal edema. Respiratory: No cough, no shortness of breath. Abdominal: No abdominal pain. No nausea. No vomiting. Genitourinary: No dysuria. No hematuria. Musculoskeletal: No myalgias. No arthralgias. Neurologic: No headaches. No dizziness. No lightheadedness. Skin: No rash. No change in color. Psychiatric: No depression. No anxiety. EXAM Physical Exam Narrative Exam Narrative: Afebrile. Vital signs noted. HEENT: Normocephalic. Atraumatic. PERRL, EOMI. Neck soft and supple. No point tenderness or step off. Mild trismus. No drooling. Airway patent. Mild swelling under chin. Cardiovascular: Regular rate and rhythm. No murmurs, rubs, or gallops appreciated. Respiratory: No tachypnea. Lungs clear to auscultation bilaterally. Gastrointestinal: Abdomen soft, nontender, with normoactive bowel sounds. No rebound or guarding. Neurological: Awake. Alert. Nonfocal, nonlateralizing. Skin: No rash. Normal color. No pallor. Musculoskeletal: No pedal edema. Full range of motion extremities. Const Vital Signs: 07/01/21 17:53 Temperature 95.7 F L Temperature Source Temporal Pulse Rate 111 H Respiratory Rate 18 Blood Pressure 192/80 H Blood Pressure Mean 117 Pulse Ox 97 Oxygen Delivery Method Room Air MDM MDM MDM Narrative Medical decision making narrative: I will review his prior records. He is mildly tachycardic. He will be bolused IV fluids. I will obtain CBC and BMP, and obtain imaging of his neck. Patient has slightly elevated white count of 13.5, but I think this is nonspecific and has to do more with his recent surgery. Hemoglobin slightly hemoconcentrated at 17.5. Electrolyte panel shows BUN elevated at 19 with a creatinine of 1.12. He was bolused normal saline 1 L intravenous putting ice chips in his mouth, chewing them up, then spitting it out. However, he has able to handle his own secretions. He is complaining more of a dyne aphasia and pain with swallowing. At this point in time, as his CT shows no acute abnormalities and there are postsurgical changes status post tongue reconstruction and tonsillectomy, I feel he can be discharged safely home. He will follow up with his surgeon tomorrow. He was told to drink plenty of fluids and continue his pain medications and his nystatin for his thrush. Return instructions were reviewed. Disposition is discharged home in stable condition. Lab Data Labs: Laboratory Results - last 24 hr 07/01/21 07/01/21 18:24 18:24 WBC 13.5 H RBC 5.51 Hgb 17.5 H Hct 51.6 MCV 93.6 MCH 31.8 MCHC 33.9 RDW Std Deviation 47.1 H RDW Coeff of Gibran 13.7 Plt Count 343 MPV 10.3 Immature Gran % (Auto) 0.400 Neut % (Auto) 79.4 H Lymph % (Auto) 12.2 L [place] % (Auto) 7.7 Eos % (Auto) 0.1 Baso % (Auto) 0.2 Absolute Neuts (auto) 10.7 H Absolute Lymphs (auto) 1.64 Nucleated RBC % 0 Sodium 140 Potassium 3.9 Chloride 107 Carbon Dioxide 25.0 Anion Gap 8 BUN 19 H Creatinine 1.12 Estim Creat Clear Calc 101.04 Est GFR (MDRD) Af Amer 96 Est GFR (MDRD) Non-Af 79 BUN/Creatinine Ratio 17.0 Glucose 116 H Calcium 9.2 Radiography Diagnostic Testing: Clinical Impression(s) from Imaging Studies Soft Tissue Neck CT 07/01/21 18:11 IMPRESSION: No acute abnormalities. Postsurgical changes status post tongue reconstruction and tonsillectomy. Electronically Signed: Ned Hagan MD at 19:32 EST , Discharge Plan Triage Chief Complaint: Dental ED Provider: Miguel Angel Montoya Dx/Rx/DC Orders Clinical Impression: Odynophagia, Post-operative pain Instructions: ED Post Op Wound Check, Pain Prescriptions: No Action No Known Home Medications RF: 0 Primary Care Provider: Care Physician,No Primary Referrals: Care Physician,No Primary [Primary Care Provider] - Activity Restrictions/Additional Instructions: Call your surgeon tomorrow. Continue to drink plenty of oral fluids. Continue your nystatin swish and swallow versus swish and spit. Disposition Disposition: Home, Self Care
[2021-07-01] MEDS: 0.9% Normal Saline 1,000 ML 1000 ML IV (18:26)
[2021-07-01 18:29] LABS: Absolute Lymphocyte Count 1.64 X10^3/uL (0.83-4.51); Absolute Neutrophil Count 10.7 X10^3/uL (2.0-7.7); Basophil# 0.03 X10^3/uL; Basophil% 0.2 % (0-1); Eosinophil# 0.02 X10^3/uL; Eosinophils% 0.1 % (0-5); Hematocrit 51.6 % (40-54); Hemoglobin 17.5 g/dL (13.0-16.5); Lymphocyte # 1.64 X10^3/ul (0.83-4.51); Lymphocyte % 12.2 % (19-41); Mean Corp Hgb Conc 33.9 g/dL (32-36); Mean Corpuscular Hgb 31.8 pg (27.0-32.0); Mean Corpuscular Volume 93.6 fL (80-94); Mean Platelet Vol. 10.3 fl (6.2-12.0); Monocyte# 1.04 X10^3/uL; Monocyte% 7.7 % (0-10); NRBC Flagged by Analyzer 0 % (0-5); Neutrophil # 10.67 X10^3/uL (2.7-7.7); Neutrophil % 79.4 % (47-70); Platelet Count 343 K/mm3 (150-450); RBC Distribution Width CV 13.7 % (11.6-14.6); RBC Distribution Width SD 47.1 fl (35.1-43.9); Red Blood Count 5.51 M/mm3 (4.6-6.2); White Blood Count 13.5 K/mm3 (4.4-11.0)
[2021-07-01 18:54] LABS: Anion Gap 8 (5-15); BUN 19 mg/dL (7-18); Calcium,Total 9.2 mg/dL (8.5-10.1); Chloride 107 mmol/L (98-107); Creatinine, Serum 1.12 mg/dL (0.70-1.30); EST Glomerular Filtration Rate 79 mL/min (>60); Est Glom Filt Rate - Afr Amer 96 mL/min (>60); Estimated Creatinine Clearance 101.04 ml/min; Glucose 116 mg/dL (74-106); Potassium 3.9 mmol/L (3.5-5.1); Sodium Level 140 mmol/L (136-145)
[2021-07-01 19:50] VITALS: PULSE 92; O2SAT 97
== END 2021-07-01 19:54 | disposition home or self-care (01) ==
PROVIDERS: Emergency Provider Emergency Medicine; Visit Provider Emergency Medicine
DX: R13.10 Dysphagia, unspecified (principal); B37.0 Candidal stomatitis; G89.18 Other acute postprocedural pain; D72.829 Elevated white blood cell count, unspecified; K21.9 Gastro-esophageal reflux disease without esophagitis; E66.9 Obesity, unspecified; F17.210 Nicotine dependence, cigarettes, uncomplicated
CPT/HCPCS: 70491; 80048; 85025; 96360; 99283; J7030; Q9967

== ENCOUNTER 2024-03-03 20:06 | Observation (INO) | payer OTHER, SELFPAY ==
[2024-03-03] VITALS (7 sets, daily range): BP systolic 123–152; BP diastolic 67–83; PULSE 82–122; RESP 16–20; TEMP 36.8–37.4; O2SAT 95–99; BMI 33.4; BMI 33.0
--- NOTE | 2024-03-03 20:33 | CT_ITS ---
STUDY: CT ABDOMEN AND PELVIS WITH CONTRAST REASON FOR EXAM: Male, 38 years old. Lower abdominal pain RADIATION DOSAGE (If Supplied By Facility): CTDIvol = ( 18.41 ) mGy, DLP = ( 1455.81 ) mGycm TECHNIQUE: Transaxial images were obtained from the dome of the diaphragm to the symphysis pubis without oral contrast. IV 100mL Isovue-370 was administered. Sagittal and coronal images were reconstructed. Individualized dose optimization techniques were used for this CT. COMPARISON: None. FINDINGS: The visualized lung bases are unremarkable. The visualized portions of the heart are within normal limits. Normal liver. Normal gallbladder and extrahepatic biliary system. Normal spleen. Normal pancreas. Normal bilateral adrenal glands. Normal right kidney. There is enhancement of the left renal pelvis and ureter. Normal visualized stomach. Normal small intestine. Normal colon. There are surgical clips in the region of the appendix consistent with a prior appendectomy. There is atherosclerotic calcification of the abdominal aorta, without a demonstrated aneurysm. Normal inferior vena cava. Normal retroperitoneum. There is wall thickening of the urinary bladder. There is no free fluid in the abdomen or pelvis. Normal abdominal wall. There is degenerative change of the spine. CT/Abdomen/Pelvis W IV Cont ONLY IMPRESSION: Cystitis with wall thickening of the urinary bladder. Enhancement of the left renal pelvis and ureter. Electronically Signed: Ashish Nesbitt MD at 22:22 EDT ,
--- NOTE | 2024-03-03 20:36 | US_ITS ---
STUDY: SCROTUM ULTRASOUND REASON FOR EXAM: Male, 38 years old. BL scrotal pain TECHNIQUE: Ultrasound evaluation of the scrotum was performed with color Doppler and static cope-scale imaging. COMPARISON: CT. FINDINGS: RIGHT TESTICLE INTRATESTICULAR: There is a normal size of the right testicle. The right testicle measures 5.5 x 3.2 x 2.2 cm. There is a homogenous echotexture. There is normal arterial and normal venous vascularity. There is no demonstrated right testicular mass or cyst. EXTRATESTICULAR: The epididymis is normal in size. The epididymis head measures 1.2 cm. There is normal vascularity of the epididymis. There is no demonstrated epididymal cystic structure. There is a small hydrocele. There is no demonstrated varicocele. There is no demonstrated extratesticular mass or cyst. LEFT TESTICLE INTRATESTICULAR: There is a normal size of the left testicle. The left testicle measures 5.0 x 3.4 x 2.4 cm. There is a homogenous echotexture. There is normal arterial and normal venous vascularity. There is no demonstrated left testicular mass or cyst. EXTRATESTICULAR: The epididymis is normal in size. The epididymis head measures 1.4 cm. There is normal vascularity of the epididymis. There is no demonstrated epididymal cystic structure. There is a small hydrocele. There are prominent extratesticular veins consistent with a varicocele. There is no demonstrated extratesticular mass or cyst. US/Testicular with Arterial Flow IMPRESSION: Normal bilateral testicles. No intratesticular mass. Normal blood flow. Small hydroceles. Electronically Signed: Ashish Nesbitt MD at 22:26 EDT ,
[2024-03-03] MEDS: Acetaminophen 500 MG Tablet 1000 MG PO (20:43)
--- NOTE | 2024-03-03 20:52 | EDS_ITS ---
HPI History of Present Illness Chief Complaint: Complaint Narrative Narrative: Chief complaint and HPI: Abdominal pain and hematuria. 38-year-old male with past medical history of appendectomy presents for evaluation of lower abdominal pain, back pain, hematuria, and testicular pain. Patient states that he has been having lower back pain for the past several weeks. States that it is worse in the last couple days. Endorses pain in his bilateral lower abdomen as well. States 2 days ago he developed hematuria with decreased urination. He endorses bilateral testicular pain. Denies any penile discharge. Denies any concerns for STIs. Denies any fever, chest pain, shortness of breath, nausea, vomiting, diarrhea, bloody bowel movements, rectal pain. Review of systems: See HPI Medications: As listed on the chart Allergies: As listed on the chart PFSH: Per chart Vital signs: As listed on the chart. Reviewed. Physical exam: Gen: A&O x3, NAD Head: Normocephalic, atraumatic Eyes: No sclera icterus, conjunctiva clear ENT: Moist mucous membranes Neck: Trachea midline, No JVD CV: Tachycardic, regular rhythm, no murmurs, no peripheral edema Resp: Lungs CTA BL, no w/r/c GI: Abd soft, non-distended, tender to palpation of the bilateral lower quadrants,, + guarding, no rebound or rigidity : Positive CVA tenderness on the right : Uncircumcised male. No penile tenderness or discharge. No penile or testicular swelling. Testicles are tender to palpation bilaterally-diffusely tender. No testicular masses or skin changes. Cremasteric reflexes intact and equal bilaterally. No rashes. No palpable hernias. Musc: Full ROM, no deformity Skin: Warm, dry Neuro: Alert, oriented, grossly intact, sensation intact Psych: Cooperative, appropriate mood and affect [facility] Medical History (Updated 03/03/24 @ 22:[address] Nishi Salas MD) Acute appendicitis GERD (gastroesophageal reflux disease) Tobacco abuse Obesity (BMI 30.0-34.9) Home Medications ?Medication ?Instructions ?Recorded ?Last Taken ?Type No Known/Unobtainable [No Known 04/30/15 Unknown History Home Medications] Allergy/AdvReac Type Severity Reaction Status Date / Time Penicillins Allergy Itching Verified 03/03/24 20:06 latex AdvReac Hives Verified 03/03/24 20:06 Surgical History Hx of appendectomy Social History Smoking Status: Current every day smoker tobacco type: cigarettes EXAM Physical Exam Const Vital Signs: 03/03/24 20:06 03/03/24 20:09 03/03/24 21:00 Temperature 99.3 F H 99.3 F H 98.2 F Temperature Source Oral Oral Oral Pulse Rate 122 H 122 H 110 H Respiratory Rate 20 H 20 H 18 Blood Pressure 152/79 H 152/79 H 147/71 H Blood Pressure Mean 103 103 96 Pulse Ox 96 96 99 Oxygen Delivery Method Room Air Room Air Room Air 03/03/24 22:00 03/03/24 22:23 03/03/24 22:51 Temperature 98.4 F 98.6 F Temperature Source Oral Pulse Rate 107 H 82 109 H Respiratory Rate 18 16 18 Blood Pressure 131/74 H 134/67 H 135/83 H Blood Pressure Mean 93 89 100 Pulse Ox 99 97 99 Oxygen Delivery Method Room Air Room Air MDM MDM MDM Narrative Medical decision making narrative: 38-year-old male presents for evaluation of back pain, abdominal pain, testicular pain, and hematuria. See physical exam findings. On presentation patient is tachycardic with a temperature of 99.3. Patient requesting non- narcotics for pain control. Tylenol ordered. Differential diagnosis includes but is not limited to UTI, pyelonephritis, urolithiasis, epididymitis, hematuria, urinary retention, electrolyte abnormality. Bladder scan performed at bedside and 52 mL. Patient is not retaining. Abdominal pain workup ordered including CT abdomen pelvis and testicular ultrasound. CBC with a leukocytosis of 19.8. No anemia. CMP without GUS. No transaminitis. Lipase unremarkable. UA is positive for UTI. Urine is turbid, positive for blood and leuk esterase. 2+ bacteria. NS bolus ordered. CT abdomen pelvis shows cystitis with wall thickening of the urinary bladder. Enhancement the left renal pelvis and ureter which can be seen in pyelonephritis. However patient's CVA tenderness was on the right for me. Testicular ultrasound is negative for torsion or epididymitis. Patient does have small hydroceles. On reexamination, patient is still having significant pain. He is in agreement to morphine. Morphine ordered. Given patient's significant pain, leukocytosis, and urine results concern is for pyelonephritis. I do feel that patient warrants admission for his pyelonephritis versus outpatient antibiotics. He is in agreement to this. Patient was discussed with Dr. Salas who agreed to admission. Impression: 1. Pyelonephritis 2. UTI 3. Hematuria Lab Data Labs: Laboratory Results - last 24 hr 03/03/24 03/03/24 20:45 20:55 WBC 19.8 H RBC 5.21 Hgb 16.5 Hct 47.3 MCV 90.8 MCH 31.7 MCHC 34.9 RDW Std Deviation 45.0 H RDW Coeff of Gibran 13.4 Plt Count 232 MPV 10.4 Immature Gran % (Auto) 0.700 Neut % (Auto) 79.5 H Lymph % (Auto) 10.2 L [place] % (Auto) 8.4 Eos % (Auto) 0.8 Baso % (Auto) 0.4 Absolute Neuts (auto) 15.8 H Absolute Lymphs (auto) 2.03 Nucleated RBC % 0 Differential Comment SCANNED Diff Path Review May foll Sodium 136 Potassium 3.7 Chloride 104 Carbon Dioxide 27.0 Anion Gap 5 BUN 12 Creatinine 1.22 Estim Creat Clear Calc 107.03 Est GFR (MDRD) Af Amer 86 Est GFR (MDRD) Non-Af 71 BUN/Creatinine Ratio 9.8 L Glucose 160 H Calcium 8.9 Total Bilirubin 0.50 AST 8 L ALT 12 L Alkaline Phosphatase 84 Total Protein 7.6 Albumin 3.9 Globulin 3.7 Albumin/Globulin Ratio 1.1 Lipase 25 Urine Color Yellow Urine Clarity Turbid Urine pH 5.0 Ur Specific [place] 1.025 Urine Protein 100 H Urine Glucose (UA) Normal Urine Ketones Negative Urine Occult Blood 250 H Urine Nitrite Negative Urine Bilirubin Negative Urine Urobilinogen 1 H Ur Leukocyte Esterase 500 H Urine RBC 50-100 SEEN Urine WBC >100 SEEN Ur Squamous Epith Cells 0-5 SEEN Ur Transition Epith Cell 0-5 SEEN Ur Renal Epithelial Cell 0-5 SEEN Urine Bacteria 2+ Urine Mucus 0 SEEN Radiography Diagnostic Testing: Clinical Impression(s) from Imaging Studies Abdomen/Pelvis CT 03/03/24 20:33 IMPRESSION: Cystitis with wall thickening of the urinary bladder. Enhancement of the left renal pelvis and ureter. Electronically Signed: Ashish Nesbitt MD at 22:22 EDT , Testicular Ultrasound 03/03/24 20:36 IMPRESSION: Normal bilateral testicles. No intratesticular mass. Normal blood flow. Small hydroceles. Electronically Signed: Ashish Nesbitt MD at 22:26 EDT , Discharge Plan Triage Chief Complaint: Complaint ED Provider: Hari Martinez Dx/Rx/DC Orders Prescriptions: No Action No Known Home Medications Primary Care Provider: Care Physician,No Primary Referrals: Care Physician,No Primary [Primary Care Provider] - Print Language: [place]ian
[2024-03-03 21:04] LABS: Absolute Lymphocyte Count 2.03 X10^3/uL (0.83-4.51); Absolute Neutrophil Count 15.8 X10^3/uL (2.0-7.7); Basophil# 0.07 X10^3/uL; Basophil% 0.4 % (0-1); Eosinophil# 0.15 X10^3/uL; Eosinophils% 0.8 % (0-5); Hematocrit 47.3 % (40-54); Hemoglobin 16.5 g/dL (13.0-16.5); Lymphocyte # 2.03 X10^3/ul (0.83-4.51); Lymphocyte % 10.2 % (19-41); Mean Corp Hgb Conc 34.9 g/dL (32-36); Mean Corpuscular Hgb 31.7 pg (27.0-32.0); Mean Corpuscular Volume 90.8 fL (80-94); Mean Platelet Vol. 10.4 fl (6.2-12.0); Monocyte# 1.66 X10^3/uL; Monocyte% 8.4 % (0-10); NRBC Flagged by Analyzer 0 % (0-5); Neutrophil # 15.78 X10^3/uL (2.7-7.7); Neutrophil % 79.5 % (47-70); POSITIVE DIFFERENTIAL YES; Platelet Count 232 K/mm3 (150-450); RBC Distribution Width CV 13.4 % (11.6-14.6); Red Blood Count 5.21 M/mm3 (4.6-6.2); White Blood Count 19.8 K/mm3 (4.4-11.0)
[2024-03-03 21:06] LABS: Differential Indicated SCAN CRITERIA MET
[2024-03-03 21:23] LABS: ALB/GLOB Ratio 1.1 RATIO (0.9-2.4); AST(SGOT) 8 U/L (15-37); Alanine Aminotransfer ALT/SGPT 12 U/L (16-61); Albumin, Serum 3.9 g/dL (3.2-5.0); Alkaline Phosphatase 84 U/L (45-117); Anion Gap 5 (5-15); BUN 12 mg/dL (7-18); BUN/Creat Ratio 9.8 RATIO (10-20); Calcium,Total 8.9 mg/dL (8.5-10.1); Chloride 104 mmol/L (98-107); Creatinine, Serum 1.22 mg/dL (0.70-1.30); EST Glomerular Filtration Rate 71 mL/min (>60); Est Glom Filt Rate - Afr Amer 86 mL/min (>60); Estimated Creatinine Clearance 107.03 ml/min; Globulin 3.7 g/dL (2.2-4.2); Glucose 160 mg/dL (74-106); Lipase 25 U/L (13-75); Potassium 3.7 mmol/L (3.5-5.1); Protein, Total 7.6 g/dL (6.4-8.2); Sodium Level 136 mmol/L (136-145)
[2024-03-03 21:24] LABS: Mucous, Urine 0 SEEN /hpf (<or=2+)
[2024-03-03 21:27] LABS: Color, Urine Yellow (Yellow); Glucose, Dipstick Normal (Normal); Ketone-Dipstick Negative (Negative); Leukocyte Esterase-Dipstick 500 /ul (Negative); Nitrite-Dipstick Negative (Negative); Occult Blood-Urine 250 /ul (Negative); Protein-Dipstick 100 mg/dl (Negative); Specific Gravity, Urine 1.025 (1.002-1.030); Urine Bilirubin Dipstick Negative (Negative); Urine Clarity Turbid (Clear); Urine Urobilinogen 1 mg/dl (Normal)
[2024-03-03 21:29] LABS: Differential Comment SCANNED
[2024-03-03 21:42] LABS: White Blood Cells >100 SEEN /hpf (0-5)
[2024-03-03 21:43] LABS: Red Blood Cells-Urine 50-100 SEEN /hpf (0-5); Squamous Epithelial Cells - UA 0-5 SEEN /hpf (0-5)
[2024-03-03 21:44] LABS: Bacteria 2+ /hpf (None Seen); Renal Epithelial Cells 0-5 SEEN /hpf (0-5); Transitional Epithelial - Ur 0-5 SEEN /hpf (0-5)
[2024-03-03] MEDS: Ceftriaxone 2 GM in 0.9% Normal Saline (50mL MB+) 50 ML IV (22:42)
[2024-03-03] MEDS: 0.9% Normal Saline (1000mL) 1,000 ML 999 ML IV (22:45)
[2024-03-03] MEDS: Morphine 4 MG/ML Syringe IV (22:46)
--- NOTE | 2024-03-03 22:55 | HP.PCM.HOS_ITS ---
HPI - General General Date of Admission: 03/03/24 Date of Service: 03/03/24 Chief Complaint: Flank pain, hematuria, lower abdominal pain. 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 on intermittent antibiotic therapy with planned removal, Obesity, GERD, Tobacco use who presents to the [facility] ED on 03/03/24 with history of lower abdominal discomfort and onset of hematuria as well as lower back discomfort in addition to testicular pain reportedly having lower back discomfort for several weeks but has been worse over the last 2 to 3 days with onset of hematuria over the last 48 hours and decreased urination with pain radiating to both testicles with no recent penile discharge and denies any concerns or reasons that he could have STI with no fevers but has had chills and given ongoing prompted ED evaluation to be cautious. Patient is a otr owner operator truck driver and frequently will hold his urine and sometimes reports frequently pee into a cup/water bottle and using the same 1 several times over. He has never had any urinary tract infections previously. Workup in the ED included T99.3, heart rate 122, BP 152/79, respiratory rate 20, 96% room air with most recent repeat vitals heart rate 82, BP 134/67, respiratory rate 16, 97% on room air, CBC with WBC 19.8, human 16.5, platelet 232 with left shift, CMP with glucose 160 otherwise not marked appearing, lipase 25, urinalysis noted to be turbid, specific remedy elevated 1.025, protein 100, occult blood 250, urine nitrite negative, leukocyte esterase 500 with urine RBCs 50-100 with greater than 100 urine WBCs with 2+ urine bacteria, urine culture pending per ED, testicular ultrasound unremarkable with normal bilateral testicles with no intratesticular mass and normal blood flow as well as small hydroceles noted incidentally, CT abdomen and pelvis with contrast with cystitis with wall thickening of the urinary bladder with enhancement of the left renal pelvis and ureter. In the ED patient ministered 1 L normal saline, Tylenol 1000 mg p.o. x 1, Rocephin 2 g IV x 1 as well as morphine 4 mg IV x 1. [facility], [facility] Medical History JEAN MARIE (obstructive sleep apnea) GERD (gastroesophageal reflux disease) Tobacco abuse Obesity (BMI 30.0-34.9) Home Medications ?Medication ?Instructions ?Recorded ?Last Taken ?Type No Known/Unobtainable [No Known 04/30/15 Unknown History Home Medications] Allergy/AdvReac Type Severity Reaction Status Date / Time Penicillins Allergy Itching Verified 03/03/24 20:06 latex AdvReac Hives Verified 03/03/24 20:06 Family History (Updated 03/03/24 @ 23:[address] Nishi Salas MD) Mother COPD (chronic obstructive pulmonary disease) Lung cancer Father Thyroid disorder Surgical History History of tonsillectomy and adenoidectomy S/P insertion of hypoglossal nerve stimulator History of dental surgery Hx of appendectomy Social History (Updated 03/03/24 @ 23:[address] Nishi Salas MD) household members: spouse Smoking Status: Current every day smoker tobacco type: cigarettes Smoking packs per day: 2 Smoking cigarettes per day: 40.0 alcohol intake: never substance use type: does not use ROS ROS Narrative Admission Review of Systems: CONSTITUTIONAL: No weight loss, fever, + chills, weakness or fatigue. HEENT: Eyes: No visual loss, blurred vision, double vision or yellow sclerae. Ears, Nose, Throat: No hearing loss, sneezing, congestion, runny nose or sore throat. SKIN: No rash or itching, lesions, wounds. CARDIOVASCULAR: No chest pain, chest pressure or chest discomfort, palpitations, edema, orthopnea, syncopal events. RESPIRATORY: No shortness of breath, cough or sputum, wheezing, hemoptysis. GASTROINTESTINAL: + anorexia, lower abdominal/suprapubic pain. No nausea, vomiting, diarrhea, melena, BRBPR. GENITOURINARY: + Foul appearing/smelling urine, testicular BL pain, flank pain, frequency, suprapubic pain. NEUROLOGICAL: No headache, dizziness, syncope, paralysis, ataxia, numbness or tingling in the extremities, focal weakness, change in bowel or bladder control, seizure. MUSCULOSKELETAL: + muscle, back pain, joint pain or stiffness. HEMATOLOGIC: No anemia, bleeding or bruising. LYMPHATICS: No enlarged nodes. No history of splenectomy. PSYCHIATRIC: No history of depression or anxiety. ENDOCRINOLOGIC: + reports of sweating, cold or heat intolerance. No polyuria or polydipsia. ALLERGIES: + Hx Hives. Vital Signs Vital Signs Vital Signs: 03/03/24 20:06 03/03/24 20:09 03/03/24 21:00 Temperature 99.3 F H 99.3 F H 98.2 F Temperature Source Oral Oral Oral Pulse Rate 122 H 122 H 110 H Respiratory Rate 20 H 20 H 18 Blood Pressure 152/79 H 152/79 H 147/71 H Blood Pressure Mean 103 103 96 Pulse Ox 96 96 99 Oxygen Delivery Method Room Air Room Air Room Air 03/03/24 22:00 03/03/24 22:23 03/03/24 22:51 Temperature 98.4 F 98.6 F Temperature Source Oral Pulse Rate 107 H 82 109 H Respiratory Rate 18 16 18 Blood Pressure 131/74 H 134/67 H 135/83 H Blood Pressure Mean 93 89 100 Pulse Ox 99 97 99 Oxygen Delivery Method Room Air Room Air Weight Weight: 246 lb 7.629 oz Body Mass Index (BMI) 33.4 Physical Exam Narrative Physical Examination: General: Awake, alert, oriented x 3 and cooperative, seated upright in the ED bed, fatigued, ill-appearing, wearing a hat secondary to chills Skin: Normal color, normal turgor, no icterus, no cyanosis. HEENT: AT/NC, EOMI, PERRLA, mildly dry MM, no carotid bruits or JVD noted. Lungs: CTA bilaterally, moderate effort, mild decrease BL bases, no rales, ronchi or wheezing. Heart: Tachycardic with regular rhythm; no gallop, rub audible. Abdomen: Soft, obese, discomfort to primarily suprapubic region/bilateral lower quadrant, nondistended, mildly hyperactive BS, no appreciated HSM. Extremities: No cyanosis, no clubbing, mild ankle not markedly pitting edema bilaterally. Neurological: Patient awake, alert, oriented as noted, cognitive function intact; pupils equally reactive to light and accommodation, cranial nerves grossly normal, moving all 4 extremities, no focal deficits, strength moderately globally decreased secondary to acute presentation complaints. Psychiatric: Affect appears flat, fatigued, ill-appearing, no acute evidence of depressive or anxiety feelings. Results Lab / Micro Data 03/03/24 20:55 03/03/24 20:55 Labs: Laboratory Results - last 24 hr 03/03/24 20:45: Urine Color Yellow, Urine Clarity Turbid, Urine pH 5.0, Ur Specific [place] 1.025, Urine Protein 100 H, Urine Glucose (UA) Normal, Urine Ketones Negative, Urine Occult Blood 250 H, Urine Nitrite Negative, Urine Bilirubin Negative, Urine Urobilinogen 1 H, Ur Leukocyte Esterase 500 H, Urine RBC 50-100 SEEN, Urine WBC >100 SEEN, Ur Squamous Epith Cells 0-5 SEEN, Ur Transition Epith Cell 0-5 SEEN, Ur Renal Epithelial Cell 0-5 SEEN, Urine Bacteria 2+, Urine Mucus 0 SEEN 03/03/24 20:55: WBC 19.8 H, RBC 5.21, Hgb 16.5, Hct 47.3, MCV 90.8, MCH 31.7, MCHC 34.9, RDW Std Deviation 45.0 H, RDW Coeff of Gibran 13.4, Plt Count 232, MPV 10.4, Immature Gran % (Auto) 0.700, Neut % (Auto) 79.5 H, Lymph % (Auto) 10.2 L, [place] % (Auto) 8.4, Eos % (Auto) 0.8, Baso % (Auto) 0.4, Absolute Neuts (auto) 15.8 H, Absolute Lymphs (auto) 2.03, Nucleated RBC % 0, Differential Comment SCANNED, Diff Path Review September, Sodium 136, Potassium 3.7, Chloride 104, Carbon Dioxide 27.0, Anion Gap 5, BUN 12, Creatinine 1.22, Estim Creat Clear Calc 107.03, Est GFR (MDRD) Af Amer 86, Est GFR (MDRD) Non-Af 71, BUN/Creatinine Ratio 9.8 L, Glucose 160 H, Calcium 8.9, Total Bilirubin 0.50, AST 8 L, ALT 12 L , Alkaline Phosphatase 84, Total Protein 7.6, Albumin 3.9, Globulin 3.7, Albumin/Globulin Ratio 1.1, Lipase 25 Imaging Radiology Impression Abdomen/Pelvis CT 03/03/24 20:33 IMPRESSION: Cystitis with wall thickening of the urinary bladder. Enhancement of the left renal pelvis and ureter. Electronically Signed: Ashish Nesbitt MD at 22:22 EDT , Testicular Ultrasound 03/03/24 20:36 IMPRESSION: Normal bilateral testicles. No intratesticular mass. Normal blood flow. Small hydroceles. Electronically Signed: Ashish Nesbitt MD at 22:26 EDT Reading Location ID and State: [address] [place] [address] , Service support , Assessment & Plan Assessment/Plan (1) UTI (urinary tract infection): PLAN: Plan The patient is a 38 y/o M w/ PMHx: Obesity, GERD, Tobacco use who presents to the [facility] ED on 03/03/24 with history of lower abdominal discomfort and onset of hematuria as well as lower back discomfort in addition to testicular pain reportedly having lower back discomfort for several weeks but has been worse over the last 2 to 3 days with onset of hematuria over the last 48 hours and decreased urination with pain radiating to both testicles with no recent penile discharge and denies any concerns or reasons that he could have STI with no fevers or chills but given ongoing prompted ED evaluation to be cautious. #1. Acute Complicated Urinary Tract Infection with intractable flank, lower abdominal and testicular associated pain, Questionable early Acute Pyelonephritis: Will admit to [facility] upon ED evaluation remarkable, pending UCx, will continue IVFs, monitor I/Os, continue IV Rocephin w/ transition as able pending sensitivities and speciation. Will additionally to be cautious obtain urine gonorrhea/chlamydia PCR. Will place on scheduled low dose toradol, as needed further pain regimen oral/IV for breakthrough. #2. Elevated BP without hypertensive history: BP in the ED elevated above goal, potentially pain related with acute presentation number 1, will continue to monitor and add regimen if appropriate, as needed hydralazine in interim. #3. Hyperglycemia: Possibly stress response, admission glucose 160, hemoglobin A1c requested to be cautious. #4. GERD: Not on the regimen, will have as needed Mylanta and place on famotidine. #5. Obesity: Weight loss and lifestyle changes encouraged. #6. Tobacco Abuse: Encouraged cessation, inpatient consultation per RT, NR if desired. #7. JEAN MARIE: Status post hypoglossal nerve stimulation implant with unfortunately continuous issues with postop infection on intermittent antibiotic with planned upcoming removal. #8. DVT prophylaxis: Low risk for age, encourage ambulation Charges/Coding Visit Charges Inpatient E&M: 31478 Init Hosp L3
[2024-03-04] MEDS: Ketorolac 15 MG/ML Vial IV ×2 (00:29→10:20)
[2024-03-04] MEDS: Famotidine 20 MG Tablet PO ×2 (00:29→10:22)
[2024-03-04 05:51] VITALS: BP 125/75; PULSE 95; RESP 16; TEMP 36.6; O2SAT 98
[2024-03-04 06:37] LABS: Absolute Neutrophil Count 7.6 X10^3/uL (2.0-7.7); Basophil# 0.07 X10^3/uL; Basophil% 0.6 % (0-1); Eosinophil# 0.32 X10^3/uL; Eosinophils% 2.6 % (0-5); Hematocrit 44.6 % (40-54); Hemoglobin 15.1 g/dL (13.0-16.5); Lymphocyte % 26.3 % (19-41); Mean Corp Hgb Conc 33.9 g/dL (32-36); Mean Corpuscular Hgb 31.3 pg (27.0-32.0); Mean Corpuscular Volume 92.5 fL (80-94); Mean Platelet Vol. 10.4 fl (6.2-12.0); Monocyte# 0.91 X10^3/uL; Monocyte% 7.5 % (0-10); NRBC Flagged by Analyzer 0 % (0-5); Neutrophil # 7.64 X10^3/uL (2.7-7.7); Neutrophil % 62.7 % (47-70); Platelet Count 203 K/mm3 (150-450); RBC Distribution Width CV 13.4 % (11.6-14.6); RBC Distribution Width SD 45.8 fl (35.1-43.9); Red Blood Count 4.82 M/mm3 (4.6-6.2); White Blood Count 12.2 K/mm3 (4.4-11.0)
[2024-03-04 07:25] LABS: AST(SGOT) 8 U/L (15-37); Alanine Aminotransfer ALT/SGPT 11 U/L (16-61); Albumin, Serum 3.1 g/dL (3.2-5.0); Alkaline Phosphatase 68 U/L (45-117); Anion Gap 4 (5-15); BUN 13 mg/dL (7-18); Calcium,Total 8.3 mg/dL (8.5-10.1); Chloride 110 mmol/L (98-107); Creatinine, Serum 0.86 mg/dL (0.70-1.30); EST Glomerular Filtration Rate 105 mL/min (>60); Est Glom Filt Rate - Afr Amer 128 mL/min (>60); Estimated Creatinine Clearance 150.91 ml/min; Globulin 3.2 g/dL (2.2-4.2); Glucose 108 mg/dL (74-106); Potassium 3.6 mmol/L (3.5-5.1); Protein, Total 6.3 g/dL (6.4-8.2); Sodium Level 139 mmol/L (136-145)
[2024-03-04 07:58] LABS: Hemoglobin A1c 5.6 % (3.8-5.6)
[2024-03-04 08:05] VITALS: O2SAT 96
[2024-03-04 09:50] LABS: Pathologist Review Reviewed
[2024-03-04] MEDS: oxyCODONE 5 MG Tablet PO (10:17)
[2024-03-04] MEDS: 0.9% Saline Lock 10 ML Syringe IV (10:21)
[2024-03-04 10:36] VITALS: BP 114/76; PULSE 77; RESP 17; TEMP 36.8; O2SAT 98
--- NOTE | 2024-03-04 11:23 | DCINST_ITS ---
Discharge Instructions Diet Discharge Diet: No restrictions Activity Discharge Activity: Return to Normal Activity Return to work on:: 03/07/24 Weight Bearing Status: Full weight bearing Follow Up Care Test Results: Test results from this visit will be discussed in further detail at your follow- up appointment, if applicable. Discharge Plan Admission Admit Date/Time: 03/03/24 22:55 Primary Reason for Your Visit: cystitis Attending Provider: Danilo Adan Primary Care Provider: Care Physician,No Primary Consulting Providers: Nishi Salas Instructions Forms: Work / School Excuse Discharge Orders/Prescriptions Prescriptions: New ciprofloxacin HCl 500 mg tablet 500 mg PO BID Qty: 20 0RF Rx Instructions: start the evening 03/04/24 phenazopyridine [Pyridium] 200 mg tablet 200 mg PO TID Qty: 9 0RF Referrals / Follow Up: Care Physician,No Primary [Primary Care Provider] - Disposition Disposition (needs filled in before D/C Order can be placed): Home, Self Care
--- NOTE | 2024-03-04 11:33 | PCM.DC.SUM ---
Providers Date of Admission: 03/03/24 Date of Discharge: 03/04/24 Primary Care Physician: Lorena Primary Care Phys Reason For Visit: UTI, ? PYELONEPHRITIS Diagnosis Discharge Diagnosis (1) UTI (urinary tract infection): Status: Acute Code(s): N39.0 - Urinary tract infection, site not specified Plan 1. Acute cystitis Pyelonephritis was ruled out Medications at Discharge Home Medications ciprofloxacin HCl 500 mg tablet 500 mg PO BID #20 tabs 03/04/24 phenazopyridine 200 mg tablet (Pyridium) 200 mg PO TID #9 tabs 03/04/24 Hospital Course Operations None Procedures None Summary of Care Provided Minutes Spent on Discharge: 30 Hospital Course: This 38-year-old white male was seen in the emergency room at [facility] with a chief complaint of lower abdominal pain, hematuria, and low back pain. Patient stated his back discomfort was present for several weeks. Patient stated that 2 days ago he developed hematuria with urinary frequency. Workup in the emergency room included a CBC which showed an elevated white blood cell count of 19.8, chemistry profile was normal except for a glucose of 160. Patient's urinalysis was grossly positive for a urinary tract infection, patient had a CT of the abdomen and pelvis performed which showed cystitis with wall thickening of the urinary bladder. Patient had a testicular ultrasound which was unremarkable except for small hydroceles. Patient was given IV antibiotics and IV fluids, he was placed in observation status on MedSurg 3, repeat labs showed an improved white blood cell count. On 03/04/2024, patient was seen and examined: On examination he appeared in good health and spirits. Vital signs as documented. Skin warm and dry and without overt rashes. Neck without JVD, neck was supple, trachea midline, thyroid was normal. Lungs clear bilaterally, normal air movement was noted. Heart exam notable for regular rhythm, normal sounds and absence of murmurs, rubs or gallops. Abdomen unremarkable and without evidence of organomegaly, masses, or abdominal aortic enlargement. Bowel sounds are present, abdomen is not distended. Extremities nonedematous, no cyanosis was noted, no clubbing was noted. Neuro: Cranial nerves II through XII are grossly intact, no focal motor deficits were noted, sensation to light touch and pinprick intact, motor exam 5/5 throughout. Psych: Patient is alert and oriented x3, he does not appear anxious or depressed, he does not appear agitated. Patient appears stable for discharge home on 03/04/2024. Weight / BMI Weight Weight: 110.4 kg Body Mass Index (BMI) 33.0 ABG / Lab / Microbiology Data 03/04/24 06:15 03/04/24 06:15 Laboratory: Laboratory Results - last 24 hr 03/03/24 20:45: Urine Color Yellow, Urine Clarity Turbid, Urine pH 5.0, Ur Specific [place] 1.025, Urine Protein 100 H, Urine Glucose (UA) Normal, Urine Ketones Negative, Urine Occult Blood 250 H, Urine Nitrite Negative, Urine Bilirubin Negative, Urine Urobilinogen 1 H, Ur Leukocyte Esterase 500 H, Urine RBC 50-100 SEEN, Urine WBC >100 SEEN, Ur Squamous Epith Cells 0-5 SEEN, Ur Transition Epith Cell 0-5 SEEN, Ur Renal Epithelial Cell 0-5 SEEN, Urine Bacteria 2+, Urine Mucus 0 SEEN 03/03/24 20:55: WBC 19.8 H, RBC 5.21, Hgb 16.5, Hct 47.3, MCV 90.8, MCH 31.7, MCHC 34.9, RDW Std Deviation 45.0 H, RDW Coeff of Gibran 13.4, Plt Count 232, MPV 10.4, Immature Gran % (Auto) 0.700, Neut % (Auto) 79.5 H, Lymph % (Auto) 10.2 L, [place] % (Auto) 8.4, Eos % (Auto) 0.8, Baso % (Auto) 0.4, Absolute Neuts (auto) 15.8 H, Absolute Lymphs (auto) 2.03, Nucleated RBC % 0, Differential Comment SCANNED, Diff Path Review Reviewed, Sodium 136, Potassium 3.7, Chloride 104, Carbon Dioxide 27.0, Anion Gap 5, BUN 12, Creatinine 1.22, Estim Creat Clear Calc 107.03, Est GFR (MDRD) Af Amer 86, Est GFR (MDRD) Non-Af 71, BUN/Creatinine Ratio 9.8 L, Glucose 160 H, Calcium 8.9, Total Bilirubin 0.50, AST 8 L, ALT 12 L, Alkaline Phosphatase 84, Total Protein 7.6, Albumin 3.9, Globulin 3.7, Albumin/Globulin Ratio 1.1, Lipase 25 03/04/24 06:15: WBC 12.2 H, RBC 4.82, Hgb 15.1, Hct 44.6, MCV 92.5, MCH 31.3, MCHC 33.9, RDW Std Deviation 45.8 H, RDW Coeff of Gibran 13.4, Plt Count 203, MPV 10.4, Immature Gran % (Auto) 0.300, Neut % (Auto) 62.7, Lymph % (Auto) 26.3, [place] % (Auto) 7.5, Eos % (Auto) 2.6, Baso % (Auto) 0.6, Absolute Neuts (auto) 7.6, Absolute Lymphs (auto) 3.20, Nucleated RBC % 0, Sodium 139, Potassium 3.6, Chloride 110 H, Carbon Dioxide 25.0, Anion Gap 4 L, BUN 13, Creatinine 0.86, Estim Creat Clear Calc 150.91, Est GFR (MDRD) Af Amer 128, Est GFR (MDRD) Non-Af 105, BUN/Creatinine Ratio 15.0, Glucose 108 H, Hemoglobin A1c 5.6, Calcium 8.3 L, Total Bilirubin 0.30, AST 8 L, ALT 11 L, Alkaline Phosphatase 68, Total Protein 6.3 L, Albumin 3.1 L, Globulin 3.2, Albumin/Globulin Ratio 1.0 Microbiology: Microbiology 03/03/24 20:45 Urine, Clean Catch Chlamydia trachomatis (PCR) - Final 03/03/24 20:45 Urine, Clean Catch Neisseria gonorrhoeae (PCR) - Final Radiography Diagnostic Testing: Radiology Impression Abdomen/Pelvis CT 03/03/24 20:33 IMPRESSION: Cystitis with wall thickening of the urinary bladder. Enhancement of the left renal pelvis and ureter. Electronically Signed: Ashish Nesbitt MD at 22:22 EDT , Testicular Ultrasound 03/03/24 20:36 IMPRESSION: Normal bilateral testicles. No intratesticular mass. Normal blood flow. Small hydroceles. Electronically Signed: Ashish Nesbitt MD at 22:26 EDT , D/C Instructions Discharge Diet: No restrictions Return to work on: 03/07/24 Weight Bearing Status: Full weight bearing Meaningful Use Info Meaningful Use Meaningful Use Diagnoses (Choose all that apply): None applicable Ischemic Stroke Statin Dosing Therapy Reference: STATIN DOSE THERAPY REFERENCE: * Patients > 75 years receive moderate or high dose statin therapy. * Patients 75 years or YOUNGER should receive HIGH intensity statin dose unless contraindicated. You will be required to document reason for non-treatment if statin daily dose does not meet guidelines. HIGH DOSE STATIN THERAPY DAILY Atorvastatin > than or = to 40 mg Rosuvastatin > than or = to 20 mg Amlodipine + Atorvastatin > than or = to 2.5/40 mg Ezetimibe + Simvastatin 10/80 mg Simvastatin 80mg Discharge Plan Admission Admit Date/Time: 03/03/24 22:55 Primary Reason for Your Visit: cystitis Attending Provider: Danilo Adan Primary Care Provider: Care Physician,No Primary Consulting Providers: Nishi Salas Instructions Forms: Work / School Excuse Discharge Orders/Prescriptions Prescriptions: New ciprofloxacin HCl 500 mg tablet 500 mg PO BID Qty: 20 0RF Rx Instructions: start the evening 03/04/24 phenazopyridine [Pyridium] 200 mg tablet 200 mg PO TID Qty: 9 0RF Referrals / Follow Up: Care Physician,No Primary [Primary Care Provider] - Disposition Disposition (needs filled in before D/C Order can be placed): Home, Self Care Charges/Coding Visit Charges Inpatient E&M: 78625 Disch Hosp
--- NOTE | 2024-03-04 12:35 | CASEMGMT ---
PETER QUEVEDO NOTE: Discharge order is in. PETER QUEVEDO to room. Introduced self and role. He is aware Rx's have been sent to [facility]. He does not have a PCP, stating he used to, but she . Pt provided w/local PCP directory. Pt denies having further discharge needs. Manuel STONEN PETER CM
[2024-03-04 13:57] VITALS: BP 134/89; PULSE 73; RESP 15; TEMP 36.7; O2SAT 100
== END 2024-03-04 14:15 | disposition home or self-care (01) ==
LOC: ED 21:29 → MS3 23:15
PROVIDERS: Admitting Provider Family Medicine; Emergency Provider Surgery; Visit Provider Internal Medicine
DX: N30.01 Acute cystitis with hematuria (principal); F17.210 Nicotine dependence, cigarettes, uncomplicated; N43.3 Hydrocele, unspecified; K21.9 Gastro-esophageal reflux disease without esophagitis; G47.33 Obstructive sleep apnea (adult) (pediatric); E66.9 Obesity, unspecified; Z68.33 Body mass index [BMI] 33.0-33.9, adult; R03.0 Elevated blood-pressure reading, without diagnosis of hypertension; R73.9 Hyperglycemia, unspecified; N50.811 Right testicular pain; N50.812 Left testicular pain
CPT/HCPCS: 36415; 74177; 76870; 80053; 81001; 83036; 83690; 85025; 87086; 87088; 87186; 87491; 87591; 93976; 96365; 96375; 96376; 99221; 99284; 99406; J7030; A4216; G0378; J0696